=== PATIENT | female | born 1970 | race Caucasian/White ===

== ENCOUNTER → 2016-06-29 | Outpatient (CLI) | payer OTHER | LOC: NM 13:00 | DX: R10.13 Epigastric pain (principal); K21.9 Gastro-esophageal reflux disease without esophagitis; K31.89 Other diseases of stomach and duodenum; K30 Functional dyspepsia | CPT/HCPCS: 78264; A9541 ==

== ENCOUNTER 2021-02-04 12:46 | Emergency (ER) | payer OTHER ==
[~2021-02-04 12:46] MED LIST: ADVAIR 500-501 EACH INH; BUSPIRONE HCL30 MG PO; CEFUROXIME500 MG PO; CLARITIN10 MG PO; COMBIVENT0.074 GM/I INH; FLOMAX0.4 MG PO; IBUPROFEN600 MG PO; NAPROSYN500 MG PO; NORCO 5-325 TA1 EACH PO; NORCO 7.5-3251 EACH PO; ONDANSETRON ODT4 MG PO; REQUIP2 MG PO; SINGULAIR10 MG PO; TENORMIN 25 MG25 MG PO; TOPIRAMATE100 MG PO; TRINTELLIX PO; VIT B12 PO; VRAYLOR PO
[2021-02-04 14:28] LABS: RED BLOOD COUNT 4.07 M/UL (4.00-5.10)
[2021-02-04 14:47] LABS: BUN/CREATININE RATIO 17 (0-10)
[2021-02-04] MEDS ORDERED: PROAIR HFA8.5 GM INH (16:40)
[2021-02-04] MEDS ORDERED: TESSALON PERLE100 MG PO (16:40)
[2021-02-04] MEDS ORDERED: CEPHALEXIN500 M1 PO (16:40)
== END 2021-02-04 16:56 | disposition home or self-care (01) ==
LOC: ER1 12:46
PROVIDERS: Emergency Medicine
DX: J20.9 Acute bronchitis, unspecified (principal); N39.0 Urinary tract infection, site not specified; Z20.822 Contact with and (suspected) exposure to COVID-19
CPT/HCPCS: 71045; 80053; 81001; 82550; 82553; 83690; 83735; 83874; 84484; 85025; 85379; 93005; 96374; 96375; 99285; J1100; J2405; U0002

== ENCOUNTER 2021-04-07 13:22 | Emergency (ER) | payer OTHER ==
[~2021-04-07 13:22] MED LIST changes: +CEPHALEXIN500 M1 PO; +PROAIR HFA8.5 GM INH; +TESSALON PERLE100 MG PO
[2021-04-07 14:38] LABS: RED BLOOD COUNT 4.36 M/UL (4.00-5.10); WHITE BLOOD COUNT 6.7 K/UL (4.5-11.0)
[2021-04-07 15:12] LABS: BUN/CREATININE RATIO 21 (0-10)
== END 2021-04-07 19:15 | disposition home or self-care (01) ==
LOC: ER1 13:22
PROVIDERS: Physician Assistant Medical
DX: R11.2 Nausea with vomiting, unspecified (principal); Z88.8 Allergy status to other drugs, medicaments and biological substances; Z20.822 Contact with and (suspected) exposure to COVID-19
CPT/HCPCS: 71045; 80053; 81001; 85025; 96374; 96375; 99284; J1200; J1885; J2765; U0002